=== PATIENT | female | born 1965 | race Caucasian/White ===

== ENCOUNTER 2018-03-04 21:28 | Emergency (ER) | payer OTHER ==
[~2018-03-04] VITALS: Ht 157.5 cm; Wt 99.8 kg
[2018-03-04] MEDS ORDERED: PRINIVIL20 M1 PO (21:35)
[2018-03-04] MEDS ORDERED: PROPRANOLOL 20M20 M1 PO (21:49)
[2018-03-04 21:50] LABS: ABSOLUTE BASOPHILS 0.1 thou/uL (0.0-0.2); ABSOLUTE EOSINOPHILS 0.3 thou/uL (0.0-0.7); ABSOLUTE LYMPHOCYTES 3.4 thou/uL (0.8-5.3); ABSOLUTE MONOCYTES 0.9 thou/uL (0.0-1.2); BASOPHILS 0.8 %; EOSINOPHILS 2.6 %; HEMATOCRIT 39.4 % (37.0-47.0); HEMOGLOBIN 13.1 gm/dL (12.0-15.0); LYMPHOCYTES 31.8 %; MCH 30.2 pg (26.0-34.0); MCHC 33.2 g/dL (28.0-37.0); MONOCYTES 8.5 %; MPV 8.5 fl. (7.2-11.1); NUCLEATED RBCS 0 /100WBC; PLATELET COUNT* 257 thou/uL (150-400); POLYS 56.3 %; RBC 4.33 mil/uL (4.20-5.00); RDW-CV 14.3 % (10.5-14.5); WBC 10.6 thou/uL (4.0-11.0)
[2018-03-04 22:06] LABS: ANION GAP 10 mmol/L (7-16); BUN 20 mg/dL (7-18); CHLORIDE 104 mmol/L (98-107); CO2 25 mmol/L (21-32); CREATININE 0.8 mg/dL (0.6-1.3); GLUCOSE 208 mg/dL (70-99); POTASSIUM 3.9 mmol/L (3.5-5.1); SODIUM 139 mmol/L (136-145)
[2018-03-04 22:12] LABS: URINE BILIRUBIN NEGATIVE (Negative); URINE BLOOD TRACE (Negative); URINE CLARITY CLEAR; URINE COLOR YELLOW; URINE GLUCOSE-RANDOM NEGATIVE (Negative); URINE KETONES NEGATIVE (Negative); URINE LEUKOCYTES NEGATIVE (Negative); URINE NITRITE NEGATIVE (Negative); URINE PROTEIN NEGATIVE (Negative); URINE SPECIFIC GRAVITY >= 1.030 (1.005-1.030); URINE UROBILINOGEN 0.2 E.U./dl (0.2-1.0)
[2018-03-04 22:21] LABS: ALBUMIN 3.1 g/dL (3.4-5.0); ALKALINE PHOSPHATASE 40 U/L (46-116); LIPASE 184 U/L (73-393); SGOT 11 U/L (15-37); SGPT 18 U/L (30-65); TOTAL BILIRUBIN 0.2 mg/dL (<0.1-1.0); TOTAL PROTEIN 7.3 g/dL (6.4-8.2)
[2018-03-04 22:43] LABS: TROPONIN-I LEVEL <0.06 ng/mL (<0.06)
[2018-03-04] MEDS ORDERED: BENTYL 20 MG TA20 M1 PO (23:41)
[2018-03-04 23:57] VITALS: BP 146/75
--- NOTE | 2018-03-06 12:15 | EKG ---
[place] [address] ELECTROCARDIOGRAM REPORT Name: ELIANA SOLORIO Room: [facility]#: [id number] Admission: 03/04/18 Attend Phys: Discharge: 03/04/18 Date of : 63 Report #: [id number] THIS REPORT FOR: //name// [facility] ED Test Date: 2018-03-04 Test Time: 21:45:03 Pat Name: ELIANA SOLORIO Department: Room: Gender: F Maintenance Tech: KAREN : 1965 Requested By: Ashlee Wiley Order Number: [id number] MD: Jacobo Salas Measurements Intervals [place] Rate: 90 P: 50 DC: 151 QRS: 31 QRSD: 98 T: -16 QT: 320 QTc: 392 Interpretive Statements Sinus rhythm Borderline T abnormalities, inferior leads Baseline wander in lead(s) V1 No previous ECG available for comparison Electronically Signed On 03-06-2018 12:15:04 SCALLOP SHUCKER by Jacobo Salas [email or web address] <ELECTRONICALLY SIGNED> By: Jacobo Salas MD, [facility] 03/06/18 1215 44 44 Jacobo Salas MD, [facility] /EPI
== END 2018-03-04 23:59 | disposition home or self-care (01) ==
LOC: M.ERS 21:28
PROVIDERS: Nurse Practitioner Family
DX: R10.84 Generalized abdominal pain (principal); I10 Essential (primary) hypertension; E11.9 Type 2 diabetes mellitus without complications; Z90.49 Acquired absence of other specified parts of digestive tract; Z90.710 Acquired absence of both cervix and uterus

== ENCOUNTER 2018-07-06 14:12 | Inpatient (IN) | payer OTHER ==
[~2018-07-06] VITALS: Ht 160 cm; Wt 98.9 kg
--- NOTE | ~2018-07-06 | CON ---
[address] [address] CONSULTATION Name: ELIANA SOLORIO Room: [address] IN M.R.#: [id number] Admission: 07/06/18 Attend Phys: Sunita Rodriguez MD Discharge: Date of : 63 Report #: [id number] THIS REPORT FOR: //name// CC: Sunita Osborne DATE OF SERVICE: 07/07/2018 HISTORY OF PRESENT ILLNESS: This is a 53-year-old female patient who is admitted with somewhat of a confusing and nonspecific history. She was admitted with headache. It looks like when she came in, her blood pressure was high. Her blood pressure on admission was 207/99. History is complicated by the fact that this patient has chronic headache. Record indicates that she has a history suggestive of normal pressure hydrocephalus, but I am not sure about that history. Initially, she said she saw Dr. Carreon at [facility]. Apparently, they did a spinal tap. Initially, she said the pressure was normal. Then, she said they drained CSF to get the pressure down to 15 cm. Does not look like she had any followup for that. She came to the Emergency Room. She was seen by Dr. Andrew. Dr. Andrew had another spinal tap done by Radiology and it shows a pressure of 33 cm. They drained 33 mL of fluid to get the pressure down to 10. She had numerous questions ranging from Diamox, if Diamox does not work, what to do, what the cause of pseudotumor cerebri is and I tried to explain all of it the best I could, but this patient still is pretty nervous and I am not sure she is totally satisfied with that. She indicates she has done research on pseudotumor cerebri. Initially, said that diagnosis was not mentioned, but then she said she did a research on that. REVIEW OF SYSTEMS: Indicate a history of gastroparesis, diabetes, hypertension, hysterectomy, tubal ligation, gallbladder removal, question of TIA in 2008. 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 I do not have any record. They have asked for that. FAMILY HISTORY: Noncontributory. SOCIAL HISTORY: She is , the was there and I talked to him. PHYSICAL EXAMINATION: The patient's examination indicate that she is alert. She is responsive. She is able to follow simple and complex command. Cranial nerve examination 2-12 is unremarkable except I could not have a very good look at the patient's fundus. Her strength, sensation, reflexes and tone are symmetrical. There is no meningeal sign. There is no carotid bruit. Pulses are palpable and she is a moderately obese individual who does not have any dysmorphic features of eyes, ears and face. [place] [address] CONSULTATION Name: ELIANA SOLORIO EUSEBIA Room: [address] IN [facility].#: [id number] Admission: 07/06/18 Attend Phys: Sunita Rodriguez MD Discharge: Date of : 63 Report #: [id number]. CARDIAC AND RESPIRATORY: Unremarkable. VITAL SIGNS: Blood pressure was 167/89, pulse is 67, temperature is 98.2. IMAGING: She did have a CT scan of the head and neck, which was mostly unremarkable. IMPRESSION: Because of the poorly defined and confusing history, I am not certain about the diagnosis in this patient. With a pressure of 33 cm of CSF, the possibility of pseudotumor cerebri need to be considered. Some raise in pressure can also occur because of hypertensive urgency, but with a prior history, I think the possibility of pseudotumor cerebri need to be considered. She needs an appointment with neuroophthalmologist. I discussed that aspect with her. In the meantime, I will get an MRI and MRV in this patient. I extensively discussed all of it with the patient in detail and it will be very desirable to put her on some Diamox for the time being and get a priority appointment with one of the neuroophthalmologists and then she can follow up with her own neurologist, Dr. Carreon, who has her prior records and he can review that. Thank you very much for this referral and if you have any question, please feel free to contact me. By: 1034 0241Pleidy Colon MD /мария
[~2018-07-06 14:12] MED LIST: BENTYL 20 MG TA20 M1 PO; PRINIVIL20 M1 PO; PROPRANOLOL 20M20 M1 PO
[2018-07-06 14:17] VITALS: BP 207/99
[2018-07-06 14:53] LABS: URINE BILIRUBIN NEGATIVE (Negative); URINE BLOOD NEGATIVE (Negative); URINE CLARITY CLEAR; URINE COLOR YELLOW; URINE GLUCOSE-RANDOM NEGATIVE (Negative); URINE KETONES NEGATIVE (Negative); URINE LEUKOCYTES-REFLEX NEGATIVE (Negative); URINE NITRITE-REFLEX NEGATIVE (Negative); URINE PROTEIN NEGATIVE (Negative); URINE SPECIFIC GRAVITY >= 1.030 (1.005-1.030); URINE UROBILINOGEN 0.2 E.U./dl (0.2-1.0)
[2018-07-06 15:05] LABS: ABSOLUTE BASOPHILS 0.1 thou/uL (0.0-0.2); ABSOLUTE EOSINOPHILS 0.2 thou/uL (0.0-0.7); ABSOLUTE LYMPHOCYTES 2.7 thou/uL (0.8-5.3); ABSOLUTE MONOCYTES 0.5 thou/uL (0.0-1.2); ABSOLUTE NEUTROPHILS 3.9 thou/uL (1.6-8.1); BASOPHILS 1.3 %; EOSINOPHILS 3.1 %; HEMATOCRIT 37.8 % (37.0-47.0); HEMOGLOBIN 12.8 gm/dL (12.0-15.0); LYMPHOCYTES 36.1 %; MCH 29.7 pg (26.0-34.0); MCHC 33.8 g/dL (28.0-37.0); MCV 87.8 fL (80.0-100.0); MONOCYTES 7.1 %; MPV 8.7 fl. (7.2-11.1); NUCLEATED RBCS 0 /100WBC; PLATELET COUNT* 252 thou/uL (150-400); POLYS 52.4 %; RBC 4.31 mil/uL (4.20-5.00); RDW-CV 14.6 % (10.5-14.5); WBC 7.5 thou/uL (4.0-11.0)
[2018-07-06 15:14] LABS: APTT 26.6 Seconds (25.0-31.3); PROTIME 10.1 Seconds (9.20-11.50)
[2018-07-06 15:23] LABS: ALBUMIN 3.3 g/dL (3.4-5.0); ALKALINE PHOSPHATASE 44 U/L (46-116); ANION GAP 10 mmol/L (7-16); BUN 17 mg/dL (7-18); CALCIUM 8.9 mg/dL (8.5-10.1); CHLORIDE 106 mmol/L (98-107); CO2 27 mmol/L (21-32); CREATININE 0.8 mg/dL (0.6-1.3); GLUCOSE 131 mg/dL (70-99); SGOT 20 U/L (15-37); SGPT 24 U/L (30-65); SODIUM 143 mmol/L (136-145); TOTAL BILIRUBIN 0.4 mg/dL (<0.1-1.0); TOTAL PROTEIN 7.4 g/dL (6.4-8.2); TROPONIN-I LEVEL <0.06 ng/mL (<0.06)
--- NOTE | 2018-07-06 16:21 | NUR ---
PT SIGNED CONSENT FOR LUMBAR PUNCTURE.
[2018-07-06 17:53] LABS: CSF CLARITY CLEAR; CSF COLOR COLORLESS; CSF RBC 0 /mm3; CSF WBC 3 /mm3 (0-10); VOLUME 34 ml
[2018-07-06 18:15] LABS: CSF CLARITY CLEAR; CSF COLOR COLORLESS; VOLUME 34 ml
[2018-07-06 18:16] LABS: CSF RBC 1 /mm3; CSF WBC 3 /mm3 (0-10)
[2018-07-06 18:40] VITALS: BP 190/85
[2018-07-06 18:50] LABS: CSF GLUCOSE 70 mg/dl (40-70); CSF PROTEIN 47.4 mg/dl (15-45)
[2018-07-06 18:57] VITALS: BP 190/81
[2018-07-06 20:00] VITALS: BP 150/64
--- NOTE | 2018-07-06 21:30 | NUR ---
RECEIVED REPORT AND ASSUMED CARE OF PT AT 1900. ASSESSMENT COMPLETED AT THAT TIME. AT THIS TIME COMPLETED ADMISSION HX. PT DENIES LANE OR OTHER DISCOMFORTS. TELEMETRY ON SHOWING SR. STAYING AT BEDSIDE. WILL CONT TO MONITOR AND ASSIST NEEDED.
[2018-07-07] VITALS: BP 138/70
[2018-07-07 04:00] VITALS: BP 159/80
[2018-07-07 04:56] LABS: HEMATOCRIT 36.6 % (37.0-47.0); HEMOGLOBIN 12.1 gm/dL (12.0-15.0); MCH 29.1 pg (26.0-34.0); MCHC 33.1 g/dL (28.0-37.0); MCV 87.9 fL (80.0-100.0); MPV 9.1 fl. (7.2-11.1); RBC 4.17 mil/uL (4.20-5.00); RDW-CV 14.5 % (10.5-14.5); WBC 6.6 thou/uL (4.0-11.0)
[2018-07-07 05:37] LABS: CALCIUM 8.8 mg/dL (8.5-10.1); CREATININE 0.6 mg/dL (0.6-1.3); MAGNESIUM 1.5 mg/dL (1.8-2.4); POTASSIUM 3.9 mmol/L (3.5-5.1)
--- NOTE | 2018-07-07 06:03 | NUR ---
AWAKE OFF AND ON DURING NIGHT. GAIT STEADY TO AND FROM BR. DENIES LANE OR OTHER DISCOMFORTS. NO CHANGE IN ASSESSMENT. TELEMETRY CONT TO SHOW SR. HS GOALS OF REST AND SAFETY ACHIEVED. HOURLY ROUNDING OBSERVED.
--- NOTE | 2018-07-07 08:00 | NUR ---
ASSUMED PT CARE AT 0700, PT SITTING UP IN BED, A&O X4, ENGLISH TUTOR TRACING SINUS RHYTHM, RA, DENIES ANY PAIN/SOA. PT TO HAVE MRI THIS SHIFT, GOAL IS TO MAINTAIN SAFETY AND STABLE BP. UP AD ABDON, WILL CONT POC.
[2018-07-07 12:00] VITALS: BP 175/90
--- NOTE | 2018-07-07 12:37 | EKG ---
[place] [address] ELECTROCARDIOGRAM REPORT Name: OSMINELIANA LAWS Room: [address] ADM IN ..#: [id number] Admission: 07/06/18 Attend Phys: Sunita Rodriguez MD Discharge: Date of : 63 Report #: [id number] THIS REPORT FOR: //name// [facility] ED Test Date: 2018-07-06 Test Time: 14:21:50 Pat Name: ELIANA SOLORIO Department: Room: [address] Gender: F Criminal Investigator: Jesús Adams : 1965 Requested By: Sunita Rodriguez Order Number: [id number] MD: Kaveh Westbrook Measurements Intervals [place] Rate: 76 P: 41 ME: 158 QRS: 20 QRSD: 112 T: 0 QT: 385 QTc: 433 Interpretive Statements Sinus rhythm Compared to ECG 03/04/2018 21:45:03 Electronically Signed On 07-07-2018 12:37:46 CDT by Kaveh Westbrook [email or web address] <ELECTRONICALLY SIGNED> By: Kaveh Westbrook MD, [facility] 07/07/18 1237 1421 1421 Kaveh Westbrook MD, FAC /EPI
--- NOTE | 2018-07-07 13:37 | EKG ---
[place] [address] ELECTROCARDIOGRAM REPORT Name: GLADIS SOLORIOAMMON LAWS Room: [address] ADM IN .R.#: [id number] Admission: 07/06/18 Attend Phys: Sunita Rodriguez MD Discharge: Date of : 63 Report #: [id number] THIS REPORT FOR: //name// [facility] Test Date: 2018-07-07 Test Time: 10:44:27 Pat Name: ELIANA SOLORIO Department: Room: [address] Gender: F Cook Barbecue: LENIN : 1965 Requested By: Sunita Rodriguez Order Number: [id number] MD: Jacobo Salas Measurements Intervals [place] Rate: 75 P: 25 SD: 174 QRS: 22 QRSD: 98 T: -5 QT: 383 QTc: 428 Interpretive Statements Sinus rhythm Compared to ECG 07/06/2018 14:21:50 No significant changes Electronically Signed On 07-07-2018 13:37:39 CDT by Jacobo Salas [email or web address] <ELECTRONICALLY SIGNED> By: Jacobo Salas MD, [facility] 07/07/18 1337 1044 1044 Jacobo Salas MD, [facility] /EPI
--- NOTE | 2018-07-07 14:46 | NUR ---
Pt is A&O. Resides at home with her . Active and independent. No DME. No hx of HH or SNF. Goal is home at al. Following.
[2018-07-07 16:00] VITALS: BP 142/72
--- NOTE | 2018-07-07 16:00 | NUR ---
PT WENT TO MRI, WAS UNABLE TO COMPLETE D/T PT BECOMING NAUSEOUS WITH VOMITING AND DIARRHEA. DR BLACKWELL NOTIFIED. PT BROUGHT BACK TO UNIT, OFFERED PRN ZOFRAN AND IMMODIUM, PT REFUSED. WILL CONT TO MONITOR.
--- NOTE | 2018-07-07 17:42 | NUR ---
PT CURRENTLY RESTING IN BED, CALL LIGHT IN REACH. VSS, DENIES ANY N/V OR DIARRHEA AT THIS TIME. FLUIDS CONT TO RUN AT 100ML/HR. PT TO HAVE MRI TOMORRW. HOURLY ROUNDING COMPLETED, MAINTAINED GOAL OF SAFETY AND MEDICATION BUT STATES SHE FEELS THE ACETAZOLAMIDE CAUSED TINGLING IN HER LIPS AND FACE AND PRESSURE IN HER HEAD. SHE ALSO STATED SHE WOULD NOT TAKE THAT PARTICULAR MEDICATION IF PRESCRIBED.
[2018-07-07 19:30] VITALS: BP 152/84
--- NOTE | 2018-07-07 19:30 | NUR ---
RECEIVED REPORT AND ASSUMED CARE OF PT, ASSESSMENT COMPLETED. PT STATED SHE HAD A BAD REACTION TO THE MED TAKEN EARLIER FOR THE FLUID BUILD UP. EXPLAINED THAT NEEDED TO BE DISCUSSED TOMORROW WITH THE DOCTOR BUT FROM WHAT WAS DESCRIBED IT DID NOT SOUND LIKE REACTION DUE TO TIMING BUT RATHER ANXIETY TO SITUATION. PT BECAME SOMEWHAT DEFENSIVE AND STATED SHE HAS ANXIETY AND IT WAS NOTHING LIKE THAT. PT THEN TALKING ON PHONE. IVF INFUSING. TELEMETRY SHOWING SR. AT BEDSIDE. WILL CONT TO MONITOR AND ASSIST NEEDED.
[2018-07-07 22:06] LABS: CSF TOTAL PROTEIN 41.5 mg/dL (0.0-44.0)
[2018-07-08] VITALS: BP 147/81
[2018-07-08 04:00] VITALS: BP 116/58
--- NOTE | 2018-07-08 06:25 | NUR ---
SLEPT WELL. UPSET DUE TO IV PUMP ALARMING, STATES IT HAD BEEN GOING OFF FOR 2 HR AND HE HAD BEEN PUSHING THE OK BUTTON. EDUCATION GIVEN. UNEVENTFUL NIGHT FOR PT. VOIDING WITHOUT DIFFICULTY. TELEMETRY CONT TO SHOW SR. DENIES LANE, NAUSEA OR DIARRHEA. HS GOALS OF REST AND SAFETY ACHIEVED. HOURLY ROUNDING OBSERVED.
[2018-07-08 08:00] VITALS: BP 175/97
[2018-07-08 12:00] VITALS: BP 157/87
[2018-07-08] MEDS ORDERED: CLONAZEPAM 1 MG1 M1 PO (12:15)
[2018-07-08] MEDS ORDERED: ACETAZOLAMIDE250 M2 PO (12:15)
[2018-07-08 16:00] VITALS: BP 153/84
[2018-07-08 17:19] VITALS: BP 153/84
--- NOTE | 2018-07-08 18:46 | NUR ---
ORDER RECEIVED TO DISCHARGE PATINET HOME TO SELF CARE. MED REC, MEDICATION EDCATION, STROKE EDUCATION, AND NEED FOR FOLLOW UP WITH DR ANTONIO. VITAL SIGNS STABLE AND PATINET IN NO APPARENT SIGNS OF DISTRESS AT TIME OF DISCHARGE. HOURLY ROUNDING COMPLETED FOR PATIENT SAFETY
== END 2018-07-08 18:57 | disposition home or self-care (01) | DRG 57 ==
LOC: M.ERS 14:12 → M.TBA-ER 17:28 → M.2W 17:28
PROVIDERS: Personal Emergency Response Attendant; ADMIT Internal Medicine
PROC: 009U3ZX Drainage of Spinal Canal, Percutaneous Approach, Diagnostic (ICD-10-PCS; principal; 2018-07-07)
PROC: B01B1ZZ Fluoroscopy of Spinal Cord using Low Osmolar Contrast (ICD-10-PCS; principal; 2018-07-07)
DX: G91.2 (Idiopathic) normal pressure hydrocephalus (principal); G93.2 Benign intracranial hypertension; I16.0 Hypertensive urgency; I10 Essential (primary) hypertension; E11.43 Type 2 diabetes mellitus with diabetic autonomic (poly)neuropathy; K31.84 Gastroparesis; Z86.73 Personal history of transient ischemic attack (TIA), and cerebral infarction without residual deficits; Z90.710 Acquired absence of both cervix and uterus; Z90.49 Acquired absence of other specified parts of digestive tract; Z79.899 Other long term (current) drug therapy; Z88.2 Allergy status to sulfonamides

== ENCOUNTER 2018-07-10 11:02 | Inpatient (IN) | payer OTHER ==
[2018-07-10] VITALS (7 sets, daily range): BP systolic 123–150; BP diastolic 72–90
[~2018-07-10] VITALS: Ht 160 cm; Wt 92.1 kg
[~2018-07-10 11:02] MED LIST changes: +ACETAZOLAMIDE250 M2 PO; +CLONAZEPAM 1 MG1 M1 PO
[2018-07-10 12:00] LABS: URINE BILIRUBIN NEGATIVE (Negative); URINE BLOOD NEGATIVE (Negative); URINE CLARITY CLEAR; URINE COLOR YELLOW; URINE GLUCOSE-RANDOM NEGATIVE (Negative); URINE KETONES NEGATIVE (Negative); URINE LEUKOCYTES-REFLEX TRACE (Negative); URINE NITRITE-REFLEX NEGATIVE (Negative); URINE PROTEIN NEGATIVE (Negative); URINE UROBILINOGEN 0.2 E.U./dl (0.2-1.0)
[2018-07-10 12:08] LABS: AMP/METHAMP Negative (Negative); BARBITURATES Negative (Negative); BENZODIAZEPINES Negative (Negative); COCAINE Negative (Negative); METHADONE Negative (Negative); OPIATES Negative (Negative); PCP Negative (Negative); THC Negative (Negative)
[2018-07-10 12:12] LABS: ABSOLUTE BASOPHILS 0.1 thou/uL (0.0-0.2); ABSOLUTE EOSINOPHILS 0.3 thou/uL (0.0-0.7); ABSOLUTE LYMPHOCYTES 2.5 thou/uL (0.8-5.3); ABSOLUTE MONOCYTES 0.5 thou/uL (0.0-1.2); ABSOLUTE NEUTROPHILS 4.5 thou/uL (1.6-8.1); BASOPHILS 1.3 %; EOSINOPHILS 3.6 %; HEMATOCRIT 44.6 % (37.0-47.0); HEMOGLOBIN 14.9 gm/dL (12.0-15.0); LYMPHOCYTES 31.9 %; MCH 29.8 pg (26.0-34.0); MCHC 33.4 g/dL (28.0-37.0); MONOCYTES 6.6 %; MPV 9.2 fl. (7.2-11.1); NUCLEATED RBCS 0 /100WBC; PLATELET COUNT* 283 thou/uL (150-400); POLYS 56.6 %; RBC 5.01 mil/uL (4.20-5.00); RDW-CV 14.6 % (10.5-14.5); WBC 7.9 thou/uL (4.0-11.0)
[2018-07-10 12:16] LABS: SQUAMOUS >10 Many /LPF (0-3); URINE RBC 0-2 Rare /HPF (0-2); URINE WBC-REFLEX 0-5 Rare /HPF (0-5)
[2018-07-10 12:17] LABS: CASTS None Seen /LPF (None Seen); CRYSTALS None Seen /LPF (None Seen); MUCUS 0-3 Light strn/LPF (None Seen)
[2018-07-10 12:30] LABS: ALBUMIN 3.5 g/dL (3.4-5.0); ALKALINE PHOSPHATASE 49 U/L (46-116); ANION GAP 11 mmol/L (7-16); BUN 19 mg/dL (7-18); CALCIUM 9.3 mg/dL (8.5-10.1); CHLORIDE 106 mmol/L (98-107); CO2 22 mmol/L (21-32); CREATININE 0.7 mg/dL (0.6-1.3); GLUCOSE 152 mg/dL (70-99); POTASSIUM 4.1 mmol/L (3.5-5.1); SGOT 15 U/L (15-37); SGPT 25 U/L (30-65); SODIUM 139 mmol/L (136-145); TOTAL BILIRUBIN 0.2 mg/dL (<0.1-1.0); TOTAL PROTEIN 8.3 g/dL (6.4-8.2); TROPONIN-I LEVEL <0.06 ng/mL (<0.06)
[2018-07-10 12:33] LABS: APTT 27.8 Seconds (25.0-31.3)
[2018-07-11] VITALS (7 sets, daily range): BP systolic 114–153; BP diastolic 63–89
[2018-07-11 05:29] LABS: ABSOLUTE BASOPHILS 0.1 thou/uL (0.0-0.2); ABSOLUTE EOSINOPHILS 0.3 thou/uL (0.0-0.7); ABSOLUTE LYMPHOCYTES 2.8 thou/uL (0.8-5.3); ABSOLUTE MONOCYTES 0.7 thou/uL (0.0-1.2); ABSOLUTE NEUTROPHILS 4.4 thou/uL (1.6-8.1); EOSINOPHILS 3.1 %; HEMOGLOBIN 13.3 gm/dL (12.0-15.0); LYMPHOCYTES 33.9 %; MCH 30.3 pg (26.0-34.0); MONOCYTES 8.7 %; MPV 9.4 fl. (7.2-11.1); NUCLEATED RBCS 0 /100WBC; PLATELET COUNT* 260 thou/uL (150-400); POLYS 53.3 %; RBC 4.38 mil/uL (4.20-5.00); RDW-CV 14.6 % (10.5-14.5); WBC 8.3 thou/uL (4.0-11.0)
[2018-07-11 06:17] LABS: ALBUMIN 2.8 g/dL (3.4-5.0); CALCIUM 8.4 mg/dL (8.5-10.1); CREATININE 0.8 mg/dL (0.6-1.3); POTASSIUM 4.2 mmol/L (3.5-5.1); TOTAL BILIRUBIN 0.2 mg/dL (<0.1-1.0); TOTAL PROTEIN 6.8 g/dL (6.4-8.2)
[2018-07-12] VITALS: BP 119/78
[2018-07-12 04:00] VITALS: BP 91/49
[2018-07-12 07:45] VITALS: BP 116/66
--- NOTE | 2018-07-12 09:59 | EKG ---
[place] [address] ELECTROCARDIOGRAM REPORT Name: SOLORIOELIANA Room: [address] ADM IN ..#: [id number] Admission: 07/10/18 Attend Phys: Sacha Loco Discharge: Date of : 63 Report #: [id number] THIS REPORT FOR: //name// [facility] ED Test Date: 2018-07-10 Test Time: 11:28:00 Pat Name: ELIANA SOLORIO Department: Room: [facility] Gender: F Collections Director: : 1965 Requested By: Mone Mcconnell Order Number: [id number] MD: Jacobo Salas Measurements Intervals [place] Rate: 67 P: 29 GA: 178 QRS: 23 QRSD: 102 T: 14 QT: 375 QTc: 396 Interpretive Statements Sinus rhythm Probable left atrial enlargement Compared to ECG 07/07/2018 10:44:27 No significant changes Electronically Signed On 07-12-2018 9:59:30 CDT by Jacobo Salas [email or web address] <ELECTRONICALLY SIGNED> By: Jacobo Salas MD, [facility] 07/12/18 0959 1128 1128 Jacobo Salas MD, [facility] /EPI
[2018-07-12] MEDS ORDERED: LEVAQUIN 500 M500 M1 PO (11:50)
[2018-07-12 12:02] VITALS: BP 116/66
[2018-07-12] MEDS ORDERED: ASPIR 8181 MG PO (12:13)
--- NOTE | 2018-07-13 18:03 | CON ---
[address] [address] CONSULTATION Name: ELIANA SOLORIO Room: [address]R.#: [id number] Admission: 07/10/18 Attend Phys: Sacha Loco Discharge: 07/12/18 Date of : 63 Report #: [id number] THIS REPORT FOR: //name// CC: Domonique Mi DATE OF SERVICE: 07/11/2018 This is a 53-year-old female patient who was evaluated by me. DICTATION ENDS HERE. <ELECTRONICALLY SIGNED> By: Galdino Colon MD 07/13/18 1803 1140 0339Galdino Colon MD /nt
--- NOTE | 2018-07-13 18:03 | CON ---
[address] [address] CONSULTATION Name: ELIANA SOLORIO Room: [address] IN .R.#: [id number] Admission: 07/10/18 Attend Phys: Sacha Loco Discharge: 07/12/18 Date of : 63 Report #: [id number] THIS REPORT FOR: //name// CC: Domonique Mi DATE OF SERVICE: 07/11/2018 HISTORY OF PRESENT ILLNESS: This is a 53-year-old female patient who was seen by me during last admission. This patient had presented with a headache. She underwent a spinal tap, which demonstrated increased pressure. Since then, she is having headache. Headache and other neurological symptoms come when she tries to be upright and try to walk. When she is not upright, she does not have any significant headache. REVIEW OF SYSTEMS: Indicate that she does have a prior history of headaches. Question of pseudotumor cerebri is not certain. She also has some symptom of ataxia and she has to hold on to other things when she walked and that is going on from the last few days. She may be somewhat better, but she has not significantly improved. The patient has history of hypertension, diabetes, gastroparesis, hysterectomy, tubal ligation, tonsillectomy, gallbladder removal. This was her relevant 14-point review of systems. PAST MEDICAL HISTORY: Positive for another spinal tap with some borderline pressure. FAMILY HISTORY: Negative for early age stroke. SOCIAL HISTORY: She is and had a daughter and I talked to all of them. PHYSICAL EXAMINATION: The patient's examination indicated that she is alert, responsive, able to follow simple and complex command. Her speech, concentration, fund of knowledge is at her baseline. Cranial nerve examination 2-12 looks unremarkable. I cannot look at the patient's fundus. Her strength, sensation, reflexes and tone are symmetrical. There is no meningeal sign. There is no carotid bruit in this patient. Cardiac examination is unremarkable. Blood pressure is 153/89, pulse is 70, and temperature is 98.2. LABORATORY DATA: Her white count is normal at 8.3. She did have an MRI of the brain, which I had ordered and that was unremarkable. IMPRESSION: It looks like a post-spinal headache. I discussed her options with her. I discussed with her that she can have a complete bed rest with some intravenous fluids and hydration or she can have a blood patch. She initially wanted to think about it and subsequently is thinking about blood patch. I also talked to her that no pain management comes here and [place] [address] CONSULTATION Name: SOLORIOELIANA Room: [address] IN M.R.#: [id number] Admission: 07/10/18 Attend Phys: Sacha Loco Discharge: 07/12/18 Date of : 63 Report #: [id number] even does that or not. I am going to hold her Diamox for the time being, and once her headache improved, then we may restart it. We are also trying to get an appointment with neuroophthalmologist. Thank you very much for this referral and if you have any questions, please feel free to contact me. <ELECTRONICALLY SIGNED> By: Galdino Colon MD 07/13/18 1803 1147 0331Pleidy oClon MD /nt
== END 2018-07-12 12:45 | disposition home or self-care (01) | DRG 103 ==
LOC: M.ERS 11:02 → M.TBA-ER 12:39 → M.2W 12:39
PROVIDERS: Physician Assistant; ADMIT Internal Medicine
DX: G97.1 Other reaction to spinal and lumbar puncture (principal); N39.0 Urinary tract infection, site not specified; G91.2 (Idiopathic) normal pressure hydrocephalus; E11.43 Type 2 diabetes mellitus with diabetic autonomic (poly)neuropathy; E66.9 Obesity, unspecified; F41.9 Anxiety disorder, unspecified; I10 Essential (primary) hypertension; Y84.4 Aspiration of fluid as the cause of abnormal reaction of the patient, or of later complication, without mention of misadventure at the time of the procedure; K31.84 Gastroparesis; Z79.84 Long term (current) use of oral hypoglycemic drugs; Z90.49 Acquired absence of other specified parts of digestive tract; Z90.710 Acquired absence of both cervix and uterus; Z86.73 Personal history of transient ischemic attack (TIA), and cerebral infarction without residual deficits; Z98.51 Tubal ligation status; Z88.5 Allergy status to narcotic agent; Z80.3 Family history of malignant neoplasm of breast; Z83.6 Family history of other diseases of the respiratory system; Z68.36 Body mass index [BMI] 36.0-36.9, adult; Y92.89 Other specified places as the place of occurrence of the external cause

== ENCOUNTER 2018-10-18 11:46 | Inpatient (IN) | payer OTHER ==
[~2018-10-18] VITALS: Ht 160 cm; Wt 91.9 kg
--- NOTE | ~2018-10-18 | CON ---
[address] [address] CONSULTATION Name: ELIANA SOLORIO Room: [address] IN M.R.#: [id number] Admission: 10/18/18 Attend Phys: Lianna Cesar MD Discharge: 10/19/18 Date of : 63 Report #: [id number] THIS REPORT FOR: //name// CC: Domonique Cesar DATE OF SERVICE: 10/19/2018 HISTORY OF PRESENT ILLNESS: This is a 53-year-old female patient who was admitted with an episode of incoordination. She had some dizziness associated with that. There is some question of visual disturbances, but the patient indicated that she did not have any visual disturbances. It is not clear what her blood sugar was at that time. She was evaluated in Emergency Room. At that time, a CT angiogram of the head and neck was done and they were unremarkable. Subsequently, she had an MRI of the brain and that does not show any abnormality either. The patient is feeling back to her baseline. REVIEW OF SYSTEMS: Indicate that I had seen this patient in the past. Subsequently, she was referred to [facility] and neuroophthalmologist for the possibility of pseudotumor cerebri. She has been following up there. Apparently, they put her on Topamax. She indicated it is because of pseudotumor cerebri, but I am not certain. From that perspective, she is doing fine. She indicated that she will not have another spinal tap done, but as I understand from her pseudotumor cerebri, it is being followed by [facility] and apparently her symptoms are under control at that time. I told her I will defer that further evaluation and management to them. She is not having any new visual symptoms or any ENT symptoms. Also with present symptomatology, she does have a history of diabetes and hypertension. She has a prior history of gastroparesis and hysterectomy. Question of TIA in 2008. As mentioned above, she does not have any ophthalmology symptoms right now. This was her relevant 14-point review of systems. She is not complaining of any new musculoskeletal, constitutional, dermatological, hematological, psychiatric, throat, allergic symptom associated with present symptomatology. PAST MEDICAL HISTORY: Positive for possible pseudotumor cerebri for which she is being followed by [facility]. FAMILY HISTORY: Unremarkable. SOCIAL HISTORY: She does not drink any alcohol. PHYSICAL EXAMINATION: The patient's examination indicates she is alert, responsive, able to follow simple and complex command. Her speech, concentration, fund of knowledge looks unremarkable. Cranial nerve examination 2-12 was unremarkable. I could not have a very good look at the patient's fundus, but I think that these margins [place] [address] CONSULTATION Name: ELIANA SOLORIO Room: [address] IN M.R.#: [id number] Admission: 10/18/18 Attend Phys: Lianna Cesar MD Discharge: 10/19/18 Date of : 63 Report #: [id number] sensation, reflexes and tone is symmetrical. There is no meningeal sign. There is no carotid bruit. There is no cerebellar sign. Cardiac and respiratory examination is unremarkable. Pulses are palpable. Blood pressure is 136/71, pulse is 70, temperature is 98.4. LABORATORY DATA: Labs indicate a white count of 6.5. Sodium is 146. Imaging study as described above is unremarkable. I reviewed the records in the computer. I did not find an echocardiogram and we will go ahead and schedule that to look for any patent foramen ovale. I will also check a sed rate in this patient. RECOMMENDATIONS: If this workup is unremarkable from neurological perspective, she can be dismissed on aspirin daily and depending upon her lipid profile and statin, she should follow up with her physician at [facility] and I asked her to call them as soon as possible and make that appointment. By: 0929 1216Galdino Arciniega MD /nt
[~2018-10-18 11:46] MED LIST changes: +ASPIR 8181 MG PO; +CIPRO500 MG PO; +LEVAQUIN 500 M500 M1 PO; +PYRIDIUM100 M1 PO; +TOPAMAX50 MG PO
[2018-10-18 11:54] VITALS: BP 165/74
--- NOTE | 2018-10-18 11:56 | NUR ---
PT TAKEN TO CT SOON AFTER ARRIVAL, STROKE CODE CALLED
[2018-10-18 12:20] LABS: ABSOLUTE BASOPHILS 0.1 thou/uL (0.0-0.2); ABSOLUTE EOSINOPHILS 0.2 thou/uL (0.0-0.7); ABSOLUTE LYMPHOCYTES 2.6 thou/uL (0.8-5.3); ABSOLUTE MONOCYTES 0.7 thou/uL (0.0-1.2); BASOPHILS 0.8 %; EOSINOPHILS 3.2 %; HEMATOCRIT 38.7 % (37.0-47.0); HEMOGLOBIN 12.8 gm/dL (12.0-15.0); LYMPHOCYTES 34.5 %; MCH 28.9 pg (26.0-34.0); MCHC 33.2 g/dL (28.0-37.0); MONOCYTES 9.1 %; MPV 8.6 fl. (7.2-11.1); NUCLEATED RBCS 0 /100WBC; PLATELET COUNT* 232 thou/uL (150-400); POLYS 52.4 %; RBC 4.45 mil/uL (4.20-5.00); RDW-CV 14.6 % (10.5-14.5); WBC 7.6 thou/uL (4.0-11.0)
[2018-10-18 12:28] LABS: ANION GAP 12 mmol/L (7-16); BUN 14 mg/dL (7-18); CALCIUM 8.6 mg/dL (8.5-10.1); CHLORIDE 109 mmol/L (98-107); CO2 23 mmol/L (21-32); CREATININE 0.7 mg/dL (0.6-1.3); GLUCOSE 131 mg/dL (70-99); POTASSIUM 3.7 mmol/L (3.5-5.1); SODIUM 144 mmol/L (136-145)
[2018-10-18 12:37] LABS: ALBUMIN 3.3 g/dL (3.4-5.0); ALKALINE PHOSPHATASE 49 U/L (46-116); SGOT 15 U/L (15-37); SGPT 23 U/L (30-65); TOTAL BILIRUBIN 0.3 mg/dL (<0.1-1.0); TOTAL PROTEIN 7.4 g/dL (6.4-8.2); TROPONIN-I LEVEL <0.06 ng/mL (<0.06)
--- NOTE | 2018-10-18 12:45 | NUR ---
CODE STROKE DISCONTINUED PER DR. HARRINGTON
[2018-10-18 14:16] LABS: NT-PRO BRAIN NAT PEPTIDE 98 pg/mL (<300); TROPONIN-I LEVEL <0.06 ng/mL (<0.06)
--- NOTE | 2018-10-18 15:33 | EKG ---
[place] [address] ELECTROCARDIOGRAM REPORT Name: ELIANA SOLORIO Room: [place] [address] ADM IN .R.#: [id number] Admission: 10/18/18 Attend Phys: Lianna Cesar MD Discharge: Date of : 63 Report #: [id number] THIS REPORT FOR: //name// [facility] ED Test Date: 2018-10-18 Test Time: 12:16:53 Pat Name: ELIANA SOLORIO Department: Room: [facility] Gender: F Bulk Sugar Handler: : 1965 Requested By: Mone Andrew Order Number: [id number] MD: Sadi Frye Measurements Intervals [place] Rate: 57 P: 22 MD: 167 QRS: 10 QRSD: 96 T: 10 QT: 429 QTc: 418 Interpretive Statements Sinus rhythm Nonspecific T-wave flattening Compared to ECG 07/10/2018 11:28:00 T-wave abnormality now present Electronically Signed On 10-18-2018 15:33:02 CDT by Sadi Frye [email or web address] <ELECTRONICALLY SIGNED> By: Sadi Frye MD, [facility] 10/18/18 1533 1216 1216 Sadi Frye MD, [facility] /EPI
[2018-10-18 19:58] VITALS: BP 120/55
[2018-10-18 20:00] VITALS: BP 144/83
[2018-10-19] VITALS: BP 125/63
[2018-10-19 04:00] VITALS: BP 109/63
[2018-10-19 05:41] LABS: ABSOLUTE BASOPHILS 0.1 thou/uL (0.0-0.2); ABSOLUTE EOSINOPHILS 0.2 thou/uL (0.0-0.7); ABSOLUTE LYMPHOCYTES 2.2 thou/uL (0.8-5.3); ABSOLUTE MONOCYTES 0.5 thou/uL (0.0-1.2); ABSOLUTE NEUTROPHILS 3.4 thou/uL (1.6-8.1); BASOPHILS 0.8 %; EOSINOPHILS 3.7 %; HEMATOCRIT 36.2 % (37.0-47.0); LYMPHOCYTES 34.6 %; MCH 29.2 pg (26.0-34.0); MCHC 33.3 g/dL (28.0-37.0); MCV 87.7 fL (80.0-100.0); MONOCYTES 8.4 %; MPV 9.3 fl. (7.2-11.1); NUCLEATED RBCS 0 /100WBC; PLATELET COUNT* 216 thou/uL (150-400); POLYS 52.5 %; RBC 4.12 mil/uL (4.20-5.00); RDW-CV 14.5 % (10.5-14.5); WBC 6.5 thou/uL (4.0-11.0)
[2018-10-19 06:00] LABS: ANION GAP 10 mmol/L (7-16); BUN 17 mg/dL (7-18); CALCIUM 8.6 mg/dL (8.5-10.1); CHLORIDE 113 mmol/L (98-107); CHOLESTEROL 163 mg/dL (<200); CO2 23 mmol/L (21-32); CREATININE 0.8 mg/dL (0.6-1.3); GLUCOSE 149 mg/dL (70-99); HDL CHOLESTEROL 39 mg/dL (>40); LDL CHOLESTEROL 72 mg/dL (<100); MAGNESIUM 1.7 mg/dL (1.8-2.4); POTASSIUM 3.7 mmol/L (3.5-5.1); SODIUM 146 mmol/L (136-145); TC:HDL 4.2 Ratio (Not establshd); TRIGLYCERIDE 261 mg/dL (<150); VLDL 52 mg/dL (<40)
--- NOTE | 2018-10-19 06:04 | NUR ---
PT ARRIVED FROM ER AROUND 194 BY BED, WALKED TO BED ONCE ARRIVED. ASSESSMENT COMPLETED CHARTED. ABLE TO MAKE NEEDS KNOWN. UP AD ABDON, AT BEDSIDE, NO C/O PAIN OR DISCOMFORT. NIH O, NO WEAKNESS NOTED. VSS. CT AND MRI NEGATIVE. WILL CONTINUE TO MONITOR.
[2018-10-19 06:05] LABS: SERUM ASSESSMENT Slight Lipemia
[2018-10-19 08:00] VITALS: BP 136/71
[2018-10-19 11:30] VITALS: BP 152/87
[2018-10-19] MEDS ORDERED: ASPIRIN EC81 M1 PO (12:01)
[2018-10-19] MEDS ORDERED: LIPITOR40 MG PO (12:01)
[2018-10-19 12:37] VITALS: BP 152/87
--- NOTE | 2018-10-19 13:18 | 2DMMODE ---
[place] [address] 2 D/M-MODE ECHOCARDIOGRAM Name: ELIANA SOLORIO Room: [address] IN [facility]#: [id number] Admission: 10/18/18 Attend Phys: Lianna Cesar MD Discharge: Date of : 63 Date of Service: 10/19/18 1318 Report #: [id number] THIS REPORT FOR: //name// APPROVED REPORT Study performed: 10/19/2018 10:39:45 EXAM: Comprehensive 2D, Doppler, and color-flow Echocardiogram Patient Location: In-Patient Room #: [facility] Status: routine BSA: 1.94 HR: 64 bpm BP: 136/71 mmHg Rhythm: NSR Other Information Study Quality: Good Indications CVA/TIA Echo Enhancing Agent Indication: Rule out Shunt Agent(s) / Amount(s) Used: Agitated Saline 10 cc 2D Dimensions IVSd: 11.93 (7-11mm) LVOT Diam: 18.77 (18-24mm) LVDd: 46.39 mm PWd: 11.60 (7-11mm) Ascending Ao: 30.92 (22-36mm) LVDs: 26.91 (25-40mm) Aortic Root: 27.51 mm Volumes Left Atrial Volume (Systole) LA ESV Index: 22.70 mL/m2 Aortic Valve AoV Peak Pete.: 1.82 m/s AO Peak Gr.: 13.27 mmHg LVOT Max P.66 mmHg AO Mean Gr.: 6.56 mmHg LVOT Mean P.63 mmHg LVOT Max V: 1.38 m/s AO V2 VTI: 41.02 cm LVOT Mean V: 0.87 m/s EVELIA (VTI): 2.16 cm2 LVOT V1 VTI: 32.02 [place] [address] 2 D/M-MODE ECHOCARDIOGRAM Name: ELIANA SOLORIO Room: [address] IN [facility]#: [id number] Admission: 10/18/18 Attend Phys: Lianna Cesar MD Discharge: Date of : 63 Date of Service: 10/19/18 1318 Report #: [id number] Mitral Valve E/A Ratio: 1.22 MV Decel. Time: 198.91 ms MV E Max Pete.: 1.03 m/s MV PHT: 57.68 ms MVA (PHT): 3.81 cm2 TDI E/Lateral E': 10.30 E/Medial E': 10.30 Medial E' Pete.: 0.10 m/s Lateral E' Pete.: 0.10 m/s Pulmonary Valve PV Peak Pete.: 1.10 m/s PV Peak Gr.: 4.84 mmHg Left Ventricle The left ventricle is normal size. There is normal LV segmental wall motion. Mild concentric left ventricular hypertrophy. Left ventricular systolic function is normal. The left ventricular ejection fraction is within the normal range. LVEF is 60-65%. The left ventricular diastolic function is normal. Right Ventricle The right ventricle is normal size. The right ventricular systolic function is normal. Atria The left atrium size is normal. Interatrial septum is intact without evidence of ASD or PFO. The right atrium size is normal. Aortic Valve Mild aortic valve sclerosis. No aortic regurgitation is present. There is no aortic valvular stenosis. Mitral Valve The mitral valve is normal in structure. Mild mitral regurgitation. No evidence of mitral valve stenosis. Tricuspid Valve The tricuspid valve is normal in structure. Trace tricuspid regurgitation. Pulmonic Valve The pulmonary valve is normal in structure. There is no pulmonic valvular [place] [address] 2 D/M-MODE ECHOCARDIOGRAM Name: ELIANA SOLORIO EUSEBIA Room: [address] IN [facility]#: [id number] Admission: 10/18/18 Attend Phys: Lianna Cesar MD Discharge: Date of : 63 Date of Service: 10/19/18 1318 Report #: [id number] Great Vessels The aortic root is normal in size. IVC is normal in size and collapses >50% with inspiration. Pericardium There is no pericardial effusion. <Conclusion> LVEF is 60-65%. Interatrial septum is intact without evidence of ASD or PFO. Mild concentric left ventricular hypertrophy. <ELECTRONICALLY SIGNED> By: Kaveh Westbrook MD, [facility] 10/19/18 1318 1318 1318 Kaveh Westbrook MD, [facility] /INF
--- NOTE | 2018-10-19 13:25 | NUR ---
ASSUMED PT CARE AT 0700, PT A&O X4, VSS, UP AD ABDON, CREAM GATHERER TRACING SINUS RHYTHM. PT DISCHARGED HOME AT APPROX 1315 WITH AND NURSING STAFF, EDUCATED ON ALL DISCHARGE INSTRUCTIONS INCLUDING FOLLOW UP APPTS AND MEDICATIONS, IV AND CREAM GATHERER REMOVED, HOURLY ROUNDING COMPLETED.
[2018-10-19 13:48] LABS: URINE BILIRUBIN NEGATIVE (Negative); URINE BLOOD NEGATIVE (Negative); URINE CLARITY CLEAR; URINE COLOR YELLOW; URINE GLUCOSE-RANDOM NEGATIVE (Negative); URINE KETONES NEGATIVE (Negative); URINE LEUKOCYTES-REFLEX NEGATIVE (Negative); URINE NITRITE-REFLEX NEGATIVE (Negative); URINE PROTEIN NEGATIVE (Negative); URINE UROBILINOGEN 0.2 E.U./dl (0.2-1.0)
[2018-10-19 13:53] LABS: AMP/METHAMP Negative (Negative); BARBITURATES Negative (Negative); BENZODIAZEPINES Negative (Negative); COCAINE Negative (Negative); METHADONE Negative (Negative); OPIATES Negative (Negative); PCP Negative (Negative); THC Negative (Negative)
--- NOTE | 2018-10-19 16:07 | NUR ---
PT. DISCHARGED TO HOME PRIOR TO O.T. EVAL. PLEASE ORDER FURTHER O.T. SERVICES IF NEEDED.
[2018-10-20 02:06] LABS: GLYCOHEMOGLOBIN (HGB A1C) 6.7 % (4.8-5.6)
== END 2018-10-19 14:03 | disposition home or self-care (01) | DRG 69 ==
LOC: M.ERS 11:46 → M.2W 14:47 → M.TBA-ER 14:47 → M.2W 19:52
PROVIDERS: Personal Emergency Response Attendant; ADMIT Family Medicine
DX: G45.9 Transient cerebral ischemic attack, unspecified (principal); I10 Essential (primary) hypertension; E11.9 Type 2 diabetes mellitus without complications; Z90.710 Acquired absence of both cervix and uterus; Z90.49 Acquired absence of other specified parts of digestive tract; Z79.899 Other long term (current) drug therapy; Z88.2 Allergy status to sulfonamides; Z80.3 Family history of malignant neoplasm of breast; Z82.5 Family history of asthma and other chronic lower respiratory diseases

== ENCOUNTER 2021-02-19 11:49 | Emergency (ER) | payer OTHER ==
[~2021-02-19] VITALS: Ht 170.2 cm; Wt 83.9 kg
[~2021-02-19 11:49] MED LIST changes: +ASPIRIN EC81 M1 PO; +LIPITOR40 MG PO
[2021-02-19 12:28] LABS: ABSOLUTE BASOPHILS 0.1 thou/uL (0.0-0.2); ABSOLUTE EOSINOPHILS 0.2 thou/uL (0.0-0.7); ABSOLUTE LYMPHOCYTES 2.5 thou/uL (0.8-5.3); ABSOLUTE MONOCYTES 0.6 thou/uL (0.0-1.2); ABSOLUTE NEUTROPHILS 3.7 thou/uL (1.6-8.1); BASOPHILS 0.8 %; EOSINOPHILS 2.7 %; HEMATOCRIT 41.1 % (37.0-47.0); HEMOGLOBIN 13.6 gm/dL (12.0-15.0); LYMPHOCYTES 35.5 %; MCH 29.6 pg (26.0-34.0); MCHC 33.1 g/dL (28.0-37.0); MCV 89.5 fL (80.0-100.0); MONOCYTES 8.1 %; MPV 8.2 fl. (7.2-11.1); NUCLEATED RBCS 0 /100WBC; PLATELET COUNT* 237 thou/uL (150-400); POLYS 52.9 %; RBC 4.59 mil/uL (4.20-5.00); RDW-CV 14.2 % (10.5-14.5)
[2021-02-19 12:33] LABS: URINE BILIRUBIN NEGATIVE (Negative); URINE BLOOD NEGATIVE (Negative); URINE CLARITY CLEAR; URINE COLOR YELLOW; URINE GLUCOSE-RANDOM NEGATIVE (Negative); URINE KETONES NEGATIVE (Negative); URINE LEUKOCYTES-REFLEX NEGATIVE (Negative); URINE NITRITE-REFLEX NEGATIVE (Negative); URINE PROTEIN NEGATIVE (Negative); URINE UROBILINOGEN 0.2 E.U./dl (0.2-1.0)
[2021-02-19 12:52] VITALS: BP 146/82
[2021-02-19 14:01] LABS: CALCIUM 8.4 mg/dL (8.5-10.1); CREATININE 0.8 mg/dL (0.6-1.3); POTASSIUM 3.8 mmol/L (3.5-5.1)
[2021-02-19 14:06] LABS: ALBUMIN 3.2 g/dL (3.4-5.0); TOTAL BILIRUBIN 0.2 mg/dL (<0.1-1.0); TOTAL PROTEIN 7.5 g/dL (6.4-8.2)
== END 2021-02-19 12:54 | disposition home or self-care (01) ==
LOC: M.ERS 11:49
PROVIDERS: Family Medicine
DX: G45.9 Transient cerebral ischemic attack, unspecified (principal); I10 Essential (primary) hypertension; E11.9 Type 2 diabetes mellitus without complications; Z90.710 Acquired absence of both cervix and uterus; Z90.89 Acquired absence of other organs; Z90.49 Acquired absence of other specified parts of digestive tract; Z98.51 Tubal ligation status; Z79.899 Other long term (current) drug therapy; Z88.2 Allergy status to sulfonamides; Z88.5 Allergy status to narcotic agent